=== PATIENT | female | born 1930 | race Caucasian/White ===

== ENCOUNTER 2017-12-11 07:51 | Day surgery (SDC) | payer MEDICARE ==
[~2017-12-11 07:51] MED LIST: ALEVE220 M1 OR; FLEXERIL10 MG PO; NAPROXEN500 MG PO
[2017-12-11] MEDS ORDERED: TYLENOL325 MG PO (08:56)
[2017-12-11 11:04] VITALS: BP 179/75
== END 2017-12-11 10:05 | disposition home or self-care (01) ==
LOC: ORM 07:51
PROVIDERS: ATTEND Anesthesiology Pain Medicine
PROC: 3E0R33Z Introduction of Anti-inflammatory into Spinal Canal, Percutaneous Approach (ICD-10-PCS; principal; 2017-12-11)
PROC: B01B1ZZ Fluoroscopy of Spinal Cord using Low Osmolar Contrast (ICD-10-PCS; 2017-12-11)
DX: M54.5 Low back pain (principal); M48.07 Spinal stenosis, lumbosacral region; M51.26 Other intervertebral disc displacement, lumbar region; M46.1 Sacroiliitis, not elsewhere classified
CPT/HCPCS: Q9967